=== PATIENT | female | born 1955 | race Caucasian/White ===

== ENCOUNTER 2023-03-23 14:41 | Emergency (ER) | payer OTHER, MEDICARE, SELFPAY ==
[2023-03-23 14:56] VITALS: BP 146/74; PULSE 79; RESP 16; TEMP 37.1; O2SAT 98; BMI 35.9
--- NOTE | 2023-03-23 15:42 | W.ED.SKABFB ---
HPI - Skin/Abscess/Foreign Bdy General: Chief complaint: Skin/Abscess/Foreign Body Stated complaint: bite on right arm Time Seen by Provider: 03/23/23 15:21 History of Present Illness: Patient is a 67-year-old [id number] female that presents to the emergency department with an area of redness and swelling noted to the right forearm. Patient states it began as a small speck but has increased in size and has developed a purulent looking center. It is indurated but no fluctuance. Patient reports use of Prid yesterday which is increased the redness and swelling. Patient reports a history of diabetes, right bundle branch block, ulcerative colitis. Review of Systems General: Reports: 10 or more systems reviewed and unremarkable except in HPI and below Physical Exam Const: COMMON NORMALS: no acute distress, patient oriented x3 and alert GENERAL APPEARANCE: cooperative ORIENTATION/CONSCIOUSNESS: Yes awake Neck/C-Spine: COMMON NORMALS: full ROM GENERAL: Yes normal visual inspection Chest: COMMONS NORMALS: normal inspection of the chest Resp: COMMON NORMALS: normal respiratory effort EFFORT & INSPECTION: Yes able to speak in complete sentences and Yes symmetric chest movement Cardio: COMMON NORMALS: regular rate RATE: regular rate GI: INSPECTION: Yes normal to inspection Extremity: COMMON NORMALS: normal to inspection GENERAL: Yes normal exam except as noted Neuro: COMMON NORMALS: patient oriented x3 SENSORIUM/ORIENTATION: Yes alert CRANIAL NERVES: Yes CN normal except as noted Psych: COMMON NORMALS: mental status grossly normal, cooperative, activity/motor behavior normal, denies homicidal ideation and denies suicidal ideation Skin: COMMON NORMALS: turgor normal GENERAL SKIN EXAM: turgor normal WOUNDS: Yes wounds noted (right forearm. Erythema extends mid forearm to wrist) size; no drainage Course Vital Signs: Vital signs: Vital Signs Temperature 98.7 F 03/23/23 14:56 Pulse Rate 79 03/23/23 14:56 Respiratory Rate 16 03/23/23 14:56 Blood Pressure 146/74 03/23/23 14:56 Pulse Oximetry 98 03/23/23 14:56 Oxygen Delivery Me thod Room Air 03/23/23 14:56 MDM - Skin/Abscess/Foreign Bdy Medicial Decision Making Patient was evaluated in the emergency department for what appears to be a cellulitis. Patient believes that she was bit by some type of insect but did not see the insect/bite. What is resulted is an area of erythema warmth and swelling with a fluctuant/purulent center that measures approximately 4 mm. No area of fluctuance and surrounding tissue. Mildly indurated. Patient is going to be treated with Keflex. She is returning home to [place] tomorrow. Patient should seek immediate medical attention should she develop worsening symptoms. All questions answered No radiology studies performed this visit Discharge Plan Discharge Patient Disposition: Home Clinical Impression: Cellulitis Condition: Stable Prescriptions: New cephalexin 500 mg tablet 500 mg PO Q6H 7 Days Qty: 28 0RF Discharge Orders: Discharge ED (Routine); Ordered 03/23/23 Ordered By: Eddie Babcock Discharge Diet: Advance as tolerated Discharge Activity: Resume usual activity Patient Instructions: Cephalexin (By mouth) (Bio-Cef, Keflex), Cellulitis (ED), Pain Management Activity Restrictions/Additional Instructions: Please return to the emergency department for new, concerning, worsening symptoms Coding Level of Care Code ED Electrical Equipment Technician for Griselda Rodriguez
[2023-03-23] MEDS: cephALEXin 500 mg Capsule PO (16:01)
== END 2023-03-23 16:10 | disposition home or self-care (01) ==
PROVIDERS: Emergency Provider Nurse Practitioner
DX: L03.113 Cellulitis of right upper limb (principal)
CPT/HCPCS: 99283